=== PATIENT | male | born 1940 | race Caucasian/White ===

== ENCOUNTER 2021-03-16 08:56 | Observation (INO) | payer OTHER, MEDICARE, SELFPAY ==
[2021-03-16] VITALS (49 sets, daily range): BP systolic 143–191; BP diastolic 69–109; PULSE 39–90; RESP 14–95; TEMP 36.6–36.7; O2SAT 89–98; BMI 27.1
--- NOTE | 2021-03-16 09:32 | ECG_ITS ---
[facility] Test Date: 2021-03-16 Pat Name: Yung Smith Department: Room: Gender: Male Corporation Secretary: : 1940 Requested By: Álvaro Gao Order Number: [id number] Jasmin MD: Carlos Pitt M.D. Measurements Intervals [place] Rate: 38 P: [place]: QRS: 43 QRSD: 113 T: 50 QT: 482 QTc: 387 Interpretive Statements SUPRAVENTRICULAR BRADYCARDIA MODERATE INTRAVENTRICULAR CONDUCTION DELAY [110+ ms QRS DURATION] No previous ECG available for comparison Electronically Signed On 03-16-2021 23:26:58 CDT by Carlos Pitt M.D. [email or web address]/[id number] f
--- NOTE | 2021-03-16 09:32 | XR_ITS ---
WS: [id number] Exam: XR chest 1V portable [id number] Date/Time of Exam: 03/16/2021 9:32 AM Reason For Exam: dyspnea/cough No priors. The lungs are fully inflated and clear. Cardiomediastinal structures are unremarkable for portable te chnique. There may be a small hiatal hernia. No pleural effusions. Regional bony elements are intact. XR/XR chest 1V portable [id number] IMPRESSION: 1. No acute cardiopulmonary finding. 2. There may be a small hiatal hernia present
--- NOTE | 2021-03-16 09:33 | ED_ITS ---
HPI - General Adult General: Chief complaint: General Medical Stated complaint: LOW HR (42): [facility] Time Seen by Provider: 03/16/21 08:58 History of Present Illness: HPI narrative: 80-year-old male states last couple weeks he has had extremely poor exercise tolerance early fatigue. He usually walks couple miles a day he has an extremely difficult time doing at times not being able to accomplish it. He does not get chest pain but he notices his heart rate decreasing and he gets excessively short of breath and has to stop exerting himself. He does take metoprolol 100 mg twice daily. He thought to not take it last night and did not this morning he found his blood pressure to be elevated and he was tachycardic so he did take his metoprolol 100 mg he is now significantly bradycardic [facility] present to [facility] emergency room. He is not previously had arrhythmias to his knowledge. Onset (ago): hour(s) Relieving factors: none Exacerbating factors: none Associated symptoms: Reports dyspnea, malaise and palpitations; Deny chest pain, confusion, cough, diaphoresis, decreased appetite, fevers/chills, headache(s), nausea, rash, seizures, short of breath, syncope, vomiting or weakness Treatments prior to arrival: none Review of Systems Const: Reports: malaise; Denies: diaphoresis ENMT: Denies: throat pain, ear or mastoid pain, nasal discharge or nasal congestion Card: Reports: palpitations; Denies: chest pain or syncope Resp: Reports: dyspnea GI: Denies: nausea or vomiting : Denies: flank pain, dysuria, urinary frequency or urinary urgency Skin/Breast: Denies: rash Neuro: Denies: headache(s) or confusion PFS ED PFSH: Medical History Hypertension Surgical History History of cataract surgery History of foot surgery Family History Other CAD (coronary artery disease) Social History Smoking and tobacco status: former smoker Alcohol intake: former Physical Exam Const: COMMON NORMALS: no acute distress GENERAL APPEARANCE: cooperative and comfortable ORIENTATION/CONSCIOUSNESS: Yes awake, Yes oriented to person, Yes oriented to place and Yes oriented to time HENMT: COMMON NORMALS: normocephalic, atraumatic, hearing grossly normal bilaterally, external ears normal, EAC's normal, TM's normal bilaterally, Normal nasal mucous membranes and turbinates present, moist oral mucous membranes and oropharynx normal HEAD & SCALP: normocephalic and atraumatic NOSE: Normal nasal mucous membranes and turbinates present EXTERNAL EAR: Yes external ears normal EXTERNAL AUDITORY CANAL: EAC's normal TYMPANIC MEMBRANE: TM's normal bilaterally Eye: COMMON NORMALS: Equal, round and reactive pupils present, EOMs intact bilaterally, conjunctivae normal and no scleral icterus CONJUNCTIVA: Yes conjunctivae normal PUPIL: Yes Equal, round and reactive pupils present Neck/C-Spine: COMMON NORMALS: full ROM, no lymphadenopathy, supple and no JVD Lymph: LYMPHATIC: no lymphadenopathy noted and no lymphedema noted Resp: COMMON NORMALS: normal respiratory effort, No retractions, No use of accessory muscles and clear to auscultation bilaterally AUSCULTATION: clear to auscultation bilaterally Cardio: COMMON NORMALS: no JVD, regular rate, regular rhythm and No murmurs present (Cardio) RATE: regular rate RHYTHM: regular rhythm GI: COMMON NORMALS: Soft to palpation and No hepatosplenomegaly present AUSCULTATION: Yes normoactive bowel sounds PALPATION: Yes Soft to palpation, No Tenderness to palpation present (GI), No Guarding due to palpation present (GI) and Yes No hepatosplenomegaly present Extremity: COMMON NORMALS: normal to inspection, capillary refill normal, no clubbing, cyanosis or edema, no calf tenderness and no pedal edema Neuro: SENSORIUM/ORIENTATION: Yes oriented to person, Yes oriented to place and Yes oriented to time Skin: COMMON NORMALS: no rashes or lesions noted GENERAL SKIN EXAM: no rashes or lesions noted Course Vital Signs: Vital signs: Vital Signs Temperature 97.6 F 03/17/21 10:37 Pulse Rate 53 L 03/17/21 14:25 Respiratory Rate 20 H 03/17/21 14:25 Blood Pressure 123/61 03/17/21 14:25 Pulse Oximetry 95 03/17/21 14:25 MDM - General Adult MDM Narrative: Medical decision making narrative: Reviewed labs and imaging as found on the chart. Patient remains bradycardic but yet hypertensive. Discussed with Dr. Reynolds orders written. Lab Data: Labs: Lab Results 03/16/21 03/16/21 03/16/21 10:21 10:21 10:21 WBC 7.7 10^3/uL 10^3/ uL (4.0-10.0) RBC 4.72 10^6/uL 10^6 /uL (4.1-5.3) Hgb 14.5 g/dL g/dL (11.7-16.6) Hct 43.2 % % (42.0-52.0) MCV 91.5 fl fl (80-94) MCH 30.7 pg pg (28.0-34.0) MCHC 33.6 g/dL g/dL (30.0-36.0) RDW 13.2 % % (12.1-15.1) Plt Count 174 10^3/cmm 10^3 /cmm (130-400) MPV 12.5 fL H fL (7.4-10.4) Neut % (Auto) 65.8 % % Lymph % (Auto) 22.2 % % [place] % (Auto) 9.2 % % Eos % (Auto) 1.9 % % Baso % (Auto) 0.6 % % Neut # (Auto) 5.06 10^3/uL 10^3 /uL (1.8-7.7) Lymph # (Auto) 1.7 10^3/uL 10^3/ uL (0.8-4.8) [place] # (Auto) 0.7 10^3/uL 10^3/ uL (0.2-0.9) Eos # (Auto) 0.2 10^3/uL 10^3/ uL (0.0-0.8) Baso # (Auto) 0.1 10^3/uL 10^3/ uL (0.0-0.1) Nucleated RBC % (a uto) 0 % % Nucleated RBCs # 0.0 /100WBC /100W BC Sodium 137 mmol/L mmol/L (136-145) Potassium 4.5 mmol/L mmol/L (3.5-5.1) Chloride 104 mmol/L mmol/L (98-107) Carbon Dioxide 25 mmol/L mmol/L (22-29) Anion Gap 12.5 (5-19) BUN 15 mg/dL mg/dL (8-23) Creatinine 1.0 mg/dL mg/dL (0.7-1.2) GFR Calculation Not Reportable Glucose 93 mg/dL mg/dL (65-115) Calculated Osmolal ity 285 mOsm/kg mOsm/ kg (285-295) Calcium 8.9 mg/dL mg/dL (8.5-10.5) Magnesium Total Bilirubin 1.5 mg/dL H mg/dL (0.15-1.2) AST 16 U/L U/L (0-40) ALT 24 U/L U/L (0-41) Alkaline Phosphata se 67 IU/L IU/L (40-130) Troponin T Baselin e 10 ng/L ng/L (0-15) Troponin T 120 Min [place] Delta Troponin T NT-Pro-B Natriuret Pep 1383 pg/mL H pg/m L (0-450) Total Protein 7.2 g/dL g/dL (6.6-8.7) Albumin 4.3 g/dL g/dL (3.5-5.2) Globulin 2.9 g/dL g/dL (1.3-4.6) TSH 03/16/21 03/16/21 10:21 11:36 WBC RBC Hgb Hct MCV MCH MCHC RDW Plt Count MPV Neut % (Auto) Lymph % (Auto) [place] % (Auto) Eos % (Auto) Baso % (Auto) Neut # (Auto) Lymph # (Auto) [place] # (Auto) Eos # (Auto) Baso # (Auto) Nucleated RBC % (a uto) Nucleated RBCs # Sodium Potassium Chloride Carbon Dioxide Anion Gap BUN Creatinine GFR Calculation Glucose Calculated Osmolal ity Calcium Magnesium 1.9 mg/dL mg/dL (1.7-2.3) Total Bilirubin AST ALT Alkaline Phosphata se Troponin T Baselin e Troponin T 120 Min [place] 9.15 ng/L ng/L (0-15) Delta Troponin T -0.85 ABS# L ABS# (0-10) NT-Pro-B Natriuret Pep Total Protein Albumin Globulin TSH 3.45 uIU/mL uIU/m L (0.27-4.20) Discharge Plan Discharge Patient Disposition: Admitted As Inpatient Admit Provider: Александр Cotto Clinical Impression: Bradycardia, Hypertension Discharge Diet: Cardiac Discharge Activity: Increase activity as tolerated Coding Level of Care Code ED Rubber Extrusion Machine Operator for Chg Fwd Exam Comprehensive
--- NOTE | 2021-03-16 09:56 | PC.NURSE ---
Placed the patient on 2 liters nasal cannula per provider order. Pt O2 was 88.
[2021-03-16 10:29] LABS: Basophils # 0.1 10^3/uL (0.0-0.1); Basophils % 0.6 %; Eosinophils # 0.2 10^3/uL (0.0-0.8); Eosinophils % 1.9 %; Hematocrit 43.2 % (42.0-52.0); Hemoglobin 14.5 g/dL (11.7-16.6); Lymphocytes # 1.7 10^3/uL (0.8-4.8); Lymphocytes % 22.2 %; Mean Corpuscular HGB Conc 33.6 g/dL (30.0-36.0); Mean Corpuscular Hemoglobin 30.7 pg (28.0-34.0); Mean Corpuscular Volume 91.5 fl (80-94); Mean Platelet Volume 12.5 fL (7.4-10.4); Monocytes # 0.7 10^3/uL (0.2-0.9); Monocytes % 9.2 %; Neutrophils # 5.06 10^3/uL (1.8-7.7); Neutrophils % 65.8 %; Nucleated Red Blood Cells % 0 %; Platelet Count 174 10^3/cmm (130-400); Red Blood Count 4.72 10^6/uL (4.1-5.3); Red Cell Distribution Width 13.2 % (12.1-15.1); White Blood Count 7.7 10^3/uL (4.0-10.0)
--- NOTE | 2021-03-16 10:38 | PC.PHAR ---
pt states he takes care of his own medications-pt states he only takes the medications entered-pt [facility]
[2021-03-16 10:57] LABS: Troponin(5th) Baseline 10 ng/L (0-15)
[2021-03-16 11:01] LABS: Alanine Aminotransferase 24 U/L (0-41); Albumin Level 4.3 g/dL (3.5-5.2); Alkaline Phosphatase 67 IU/L (40-130); Anion Gap 12.5 (5-19); Aspartate Amino Transferase 16 U/L (0-40); Blood Urea Nitrogen 15 mg/dL (8-23); Calcium 8.9 mg/dL (8.5-10.5); Carbon Dioxide 25 mmol/L (22-29); Chloride 104 mmol/L (98-107); Globulin 2.9 g/dL (1.3-4.6); Glucose 93 mg/dL (65-115); NT Pro B Type Natriuretic Pept 1383 pg/mL (0-450); Osmolality Calculated 285 mOsm/kg (285-295); Potassium 4.5 mmol/L (3.5-5.1); Sodium 137 mmol/L (136-145); Total Bilirubin 1.5 mg/dL (0.15-1.2); Total Protein 7.2 g/dL (6.6-8.7)
--- NOTE | 2021-03-16 11:32 | ECG_ITS ---
[facility] Test Date: 2021-03-16 Pat Name: Yung Smith Department: Room: Gender: Male Locator Specialist: : 1940 Requested By: Álvaro Gao Order Number: [id number] Jasmin MD: Carlos Pitt M.D. Measurements Intervals [place] Rate: 45 P: [place]: QRS: 14 QRSD: 109 T: 38 QT: 499 QTc: 434 Interpretive Statements SUPRAVENTRICULAR BRADYCARDIA Compared to ECG 03/16/2021 09:12:53 Intraventricular conduction delay no longer present Electronically Signed On 03-16-2021 23:31:38 CDT by Carlos Pitt M.D. [email or web address]/store/OM/[id number]
[2021-03-16 12:15] LABS: Troponin 5 2HR 9.15 ng/L (0-15)
[2021-03-16 12:18] LABS: Troponin 5 2HR Delta -0.85 ABS# (0-10)
[2021-03-16] MEDS: amlodipine 5 mg Tablet PO (13:51)
--- NOTE | 2021-03-16 13:52 | PC.NURSE ---
Prior to administering amlodipine, pt BP was 196/115, heart rate 54, 95% room air 16 RR.
--- NOTE | 2021-03-16 14:11 | P.HP_ITS ---
Providers/Chief Complaint Primary Care Provider: Jaleesa Lezama MD Chief Complaint: LOW HR (42): [facility] History of Present Illness Yung Smith is a 80 year old male who presents to the emergency department with weakness over the last month. He has had shortness of breath when he tries to exert himself. No chest discomfort. Did not take his metoprolol last night as he noticed his heart rate was lower. Typically it runs in the mid 50s. He did take his metoprolol this morning. No recent illness, fever, cough. No nausea or vomiting. Denies any dizziness, or syncope. No blood in his stool or black or tarry stools. Review of Systems General: Reports: 10 or more systems reviewed and unremarkable except in HPI and below Const: Denies: fever(s) Eyes: Denies: change in vision ENMT: Denies: throat pain Card: Reports: dyspnea on exertion; Denies: chest pain Resp: Denies: productive cough or non-productive cough GI: Denies: abdominal pain, nausea or vomiting : Denies: flank pain Musc: Denies: neck pain Skin/Breast: Denies: rash Neuro: Denies: headache(s) Psych: Denies: anxiety Endo: Denies: polyuria [place]/Lymph: Denies: easy bruising All/Imm: Denies: urticaria Medications/Allergies Home Medications Medication Instructions Recorded Confirmed Last Taken Type cholecalciferol (vitamin D3) 50 mcg PO QAM 03/16/21 03/16/21 Unknown History [Vitamin D3] clonidine 0.3 mg TRANSDERMAL Q7D 03/16/21 03/16/21 03/09/21 History losartan 100 mg PO BEDTIME@03/16/21 03/16/21 Unknown History metoprolol tartrate 100 mg PO BID 03/16/21 03/16/21 03/16/21 06:30 History lloxl-0r-wvm-epa-fish oil [[place] 3] 1 cap PO QAM 03/16/21 03/16/21 Unknown H istory terazosin 2 mg PO BEDTIME@03/16/21 03/16/21 Unknown History Allergies Allergy/AdvReac Type Severity Reaction Status Date / Time No Known Allergies Allergy Verified 03/16/21 09:05 PFSH Acute PFSH: Medical History (Updated 03/16/21 @ 14:26 by Александр Cotto MD) Hypertension Surgical History (Updated 03/16/21 @ 14:13 by Александр Cotto MD) History of cataract surgery History of foot surgery Family History (Updated 03/16/21 @ 14:13 by Александр Cotto MD) Other CAD (coronary artery disease) Social History (Updated 03/16/21 @ 14:13 by Александр Cotto MD) Smoking and tobacco status: never smoked Alcohol intake: former Vitals/I&O/Wt Last Vital Signs Temp 97.8 F 03/16/21 13:28 Pulse 51 L 03/16/21 13:28 Resp 95 H 03/16/21 13:28 BP 177/96 03/16/21 13:28 Pulse Ox 95 03/16/21 13:28 Weight last 48 hrs Weight 90.718 kg Physical Exam Narrative: EXAM NARRATIVE: General exam is a white male, no distress, heart rate around 40 HEENT: Pupils equally round. Oropharynx clear. Neck is supple no lymphadenopathy or megaly Cardiovascular bradycardic, regular, no murmur Lungs clear no wheezing or crackles Abdomen is soft with positive bowel sounds. No obvious organomegaly exam is deferred Extremities no cyanosis clubbing or edema, cap refill brisk Skin no rash Neuro no focal deficits. Data : 03/16/21 10:21 03/16/21 10:21 Other data: Calcium 8.9, total bilirubin 1.5 rest of LFTs normal. BNP 1383, albumin 4.3 Troponins normal Chest x-ray no infiltrate EKG demonstrates supraventricular bradycardia, intraventricular conduction delay, heart rate of 38, normal axis A&P Assessment and plan (1) Bradycardia: Significant bradycardia Hold metoprolol, clonidine Norvasc will be initiated along with hydralazine. Continue patient's losartan and terazosin Cardiology consultation. Potentially could need pacemaker. If does not consider event monitor on discharge. Initially place in ICU, unless heart rate comes up and then could defer to CSU Check echocardiogram Check magnesium, TSH Hydration. No evidence of heart failure currently. Status: Acute (2) Hypertension: See plans as outlined above Status: Acute Additional A&P Information Full code Lovenox for DVT prophylaxis Attestations Medical Necessity Statement*: Will need less than 2 midnight stay for evaluation of bradycardia. Time Spent in Patient Care: Greater than 35 minutes Coding Level of Care Code Acute Barrel Filler Head for Chg Fwd Diagnoses Bradycardia R00.1 Hypertension I10
--- NOTE | 2021-03-16 14:19 | USCV_ITS ---
Yung Smith Age: 80 Gender: M : 1940 Exam Date: 03/16/2021 14:36 Ordering Phys: Александр Cotto MD Technologist: ANTONIA Exam Location: [facility] Indication: BRADYCARDIA BP: 197 / 115 HR: 43 Rhythm: Atrial fibrillation Technical Quality: Adequate MEASUREMENTS (Male / Female) Normal Values 2D ECHO LV Diastolic Diameter PLAX 4.8 cm 4.2 - 5.9 / 3.9 - 5.3 cm LV Systolic Diameter PLAX 4.1 cm IVS Diastolic Thickness 1.4 cm 0.6 - 1.0 / 0.6 - 0.9 cm IVS Systolic Thickness 1.9 cm LVPW Diastolic Thickness 1.6 cm 0.6 - 1.0 / 0.6 - 0.9 cm LVPW Systolic Thickness 2.0 cm LVOT Diameter 2.0 cm LV Ejection Fraction 2D Teich 31.7 % LV Ejection Fraction MOD 2C 55.8 % LV Ejection Fraction 2C AL 54.4 % LA Diameter 3.8 cm LA Width 3.5 cm LA Height 6.4 cm RA Width 4.6 cm RA Height 4.9 cm Aorta at Sinotubular Diameter 2.5 cm M-MODE Aortic Annulus Diameter 3.0 cm MV E Point Septal Separation 1.7 cm DOPPLER AV Peak Velocity 170.0 cm/s LVOT Peak Velocity 94.0 cm/s AV Area Cont Eq vti 2.1 cm squared AV Area Cont Eq pk 1.8 cm squared MV Peak Velocity 127.0 cm/s MV Area PHT 3.3 cm squared MV E' Velocity 61.0 cm/s Mitral E to MV E' Ratio 12.5 Mitral E to LV E' Lateral Ratio 10.3 Mitral E to LV E' Septal Ratio 16.1 TR Peak Velocity 257.0 cm/s TR Peak Gradient 26.4 mmHg TR Mean Velocity 208.7 cm/s TR Mean Gradient 18.7 mmHg TR Velocity Time Integral 80.2 cm TV Peak E Velocity 48.0 cm/s Right Atrial Pressure 3.0 mmHg Pulmonary Artery Systolic Pressu 29.4 mmHg FINDINGS Left Ventricle Normal left ventricular size and systolic function, EF 55 %. Mild left ventricular hypertrophy. No regional wall motion abnormalities. Right Ventricle The right ventricle is normal in size and function. Right Atrium mildly increased right atrial size. Left Atrium Mildly increased left atrial size. Mitral Valve Mild mitral valve regurgitation. Aortic Valve Thickened aortic valve. [id number] aortic valve regurgitation. Tricuspid Valve Mild tricuspid valve regurgitation. Pulmonic Valve Pulmonic valve not well visualized. Pericardium Normal pericardium without effusion. Aorta Normal aortic annulus size. CONCLUSIONS Normal left ventricular size and systolic function, EF 55 %. Mild left ventricular hypertrophy. No regional wall motion abnormalities. Mild biatrial enlargement Mild mitral and tricuspid valve regurgitation. [id number] aortic valve regurgitation. Thickened aortic valve. Estimated pulmonary artery peak systolic pressure 20 mmHg There is no pericardial effusion. There are no intracardiac masses. No previous study is available for comparison. Dr Rodney Phillips MD FACC (Electronically Signed) Final Date: 16 March 2021 21:54 S
[2021-03-16] MEDS: hyDRALAzine 50 mg Tablet PO ×2 (14:42→20:39)
[2021-03-16 15:02] LABS: Magnesium 1.9 mg/dL (1.7-2.3); Thyroid Stimulating Hormone 3.45 uIU/mL (0.27-4.20)
--- NOTE | 2021-03-16 15:32 | ECG_ITS ---
[facility] Test Date: 2021-03-16 Pat Name: Yung Smith Department: Room: Gender: Male Janitor: : 1940 Requested By: Álvaro Gao Order Number: [id number] Jasmin MD: Carlos Pitt M.D. Measurements Intervals [place] Rate: 54 P: [place]: QRS: 16 QRSD: 108 T: 31 QT: 481 QTc: 456 Interpretive Statements ATRIAL FIBRILLATION WITH SLOW VENTRICULAR RESPONSE PROLONGED QT INTERVAL Compared to ECG 03/16/2021 11:48:05 Prolonged QT interval now present Sinus bradycardia no longer present Electronically Signed On 03-16-2021 23:30:05 CDT by Carlos Pitt M.D. [id number]
--- NOTE | 2021-03-16 18:27 | P.CONIM_ITS ---
Providers/Reason For Consult Consulting Physician/Specialty*: DERREK Phillips MD/cardiology Reason for Consult*: Bradycardia/ HTN/ Attending Physician: Александр Cotto MD Primary Care Provider: Jaleesa Lezama MD History of Present Illness History of Present Illness Yung Smith is a 80 year old male presented to the emergency room today with complaints of palpitation, slow heartbeat and some feeling of weakness. This patient has a longstanding history of hypertension. He been on multiple antihypertensive medications including metoprolol 100 mg p.o. twice daily and clonidine 0.3mg transdermal patch once a week. For the last few weeks, he been noticing the heart rate running in the 40s and 50s. This morning the heart rate was in the low 40s. He thought that his heart rate might be progressively slowing down. For this reason, he decided to come to the hospital. He did not have any syncopal or near syncopal episodes. Occasionally he may get some queasy feeling in the head. No chest pain. He has no unusual shortness of breath. He has been having palpitations off and on for the last several months. The palpitations usually happens in the night. He has no documents to for cardiac arrhythmia or atrial fibrillation. No history for CVA or peripheral arterial disease. He has been compliant with medications. Denies any smoking abuse, alcohol abuse or any other substance abuse. No significant family history for atherosclerotic heart disease or cardiac arr hythmia. None of his close relatives have a pacemaker. Review of Systems Narrative: CONSTITUTIONAL: No fever or chills. Feeling of lethargy/weakness for the last month or so. EYES: No blurring of vision or other visual disturbances lately. ENT: No hoarseness of voice, auditory disturbances or sore throat. CARDIOVASCULAR: As mentioned above. RESPIRATORY: No significant cough. GASTROINTESTINAL: No hematemesis or melena. GENITOURINARY: No dysuria or hematuria. INTEGUMENTARY: No skin rashes or history of skin cancer. NEURO: No transient ischemic attacks or amaurosis. PSYCHIATRIC: No history of psychosis or major depression. HEMATOLOGIC: No bleeding disorders or significant anemia. ENDOCRINE: No history of polyuria or polydipsia. MUSCULOSKELETAL: No recent joint pain or swelling. ALLERGY/IMMUNOLOGY: As mentioned above. Meds/Allergies Home Medications and Allergies Home Medications Medication Instructions Recorded Confirmed Last Taken Type Vitamin D3 50 mcg PO QAM 03/16/21 03/16/21 Unknown History losartan 100 mg PO BEDTIME@21 03/16/21 03/16/21 Unknown History [id number]-fish oil 1 cap PO QAM 03/16/21 03/16/21 Unknown History terazosin 2 mg PO BEDTIME@21 03/16/21 03/16/21 Unknown History amlodipine 10 mg PO DAILY #30 tab 03/17/21 Unknown Rx apixaban [Eliquis] 5 mg PO BID@0900,2100 #60 tab 03/17/21 Unknown Rx hydralazine 50 mg PO TID #90 tab 03/17/21 Unknown Rx metoprolol tartrate 50 mg PO BID@0900,2100 #60 tab 03/17/21 Unknown Rx Allergies Allergy/AdvReac Type Severity Reaction Status Date / Time No Known Allergies Allergy Verified 03/16/21 09:05 Current Medications Current Medications Generic Name Dose Route Start Last Admin Trade Name Freq PRN Reason Stop Dose Admin Hydralazine HCl 50 mg 03/16/21 15:00 03/16/21 14:42 Hydralazine 50 Mg Tablet PO 50 mg TID NKECHI Administration PFSH Acute PFSH: Medical History Hypertension Surgical History History of cataract surgery History of foot surgery Family History Other CAD (coronary artery disease) Social History Smoking and tobacco status: never smoked Alcohol intake: former Vitals/I&O/Wt Last Vital Signs Temp 98.1 F 03/16/21 14:19 Pulse 60 03/16/21 17:59 Resp 17 03/16/21 17:59 BP 187/103 03/16/21 17:59 Pulse Ox 97 03/16/21 17:59 Weight last 48 hrs Weight 200 lb Physical Exam Narrative: EXAM NARRATIVE: GENERAL: The patient is alert and oriented times three. Not in any acute distress. HEENT: No significant pallor, icterus or lymphadenopathy. The pupils are reactant to light. Oral cavity: There are no mucous membrane lesions. Funduscopic examination: The fundus is not visualized NECK: Trachea appears to be central. No masses noted. No JVD or thyromegaly appreciated. No carotid bruit. RESPIRATORY: Chest is symmetrical. No intercostals muscle retraction or any accessory muscle activation. There is no chest wall tenderness. Breath sounds are heard bilaterally. No rales or rhonchi heard. No evidence of any consolidation. BREASTS: Deferred. HEART: The PMI is in the 5th left intercostals space just inside the midclavicular line. No palpable precordial events. The first heart sound is variable. Second heart sound is normal. No S3 or S4 heard. No pericardial rub or any click heard. ABDOMEN: No vessel pulsations or distention. No tenderness. No organomegaly appreciated. No abdominal bruit. Bowel sounds are normally heard. : Deferred. RECTAL: Deferred. LYMPHATIC: No lymphadenopathy noted in the neck or groin. EXTREMITIES: No edema or cyanosis. No clubbing. The pulses are symmetrical bilaterally. The radial, femoral, dorsalis pedis and the posterior tibial pulses are palpated and found to be in good volume and amplitude. MUSCULOSKELETAL: No acute joint deformities or swelling SKIN: There are no significant scars or skin rash noted. NEUROPSYCHIATRIC: The patient is alert and oriented x3. Appears to be in a good mood. The higher functions are grossly within normal limits. No tremors or rigidity noted. Data Labs: Other Labs: Laboratory Last Values WBC 7.7 10^3/uL (4.0- 10.0) 03/16/21 10:21 RBC 4.72 10^6/uL (4.1 -5.3) 03/16/21 10:21 Hgb 14.5 g/dL (11.7-1 6.6) 03/16/21 10:21 Hct 43.2 % (42.0-52.0 ) 03/16/21 10:21 MCV 91.5 fl (80-94) 03/16/21 10:21 MCH 30.7 pg (28.0-34. 0) 03/16/21 10:21 MCHC 33.6 g/dL (30.0-3 6.0) 03/16/21 10:21 RDW 13.2 % (12.1-15.1 ) 03/16/21 10:21 Plt Count 174 10^3/cmm (130 -400) 03/16/21 10:21 MPV 12.5 fL (7.4-10.4 ) H 03/16/21 10:21 Neut % (Auto) 65.8 % 03/16/21 10:21 Lymph % (Auto) 22.2 % 03/16/21 10:21 Hughes % (Auto) 9.2 % 03/16/21 10:21 Eos % (Auto) 1.9 % 03/16/21 10:21 Baso % (Auto) 0.6 % 03/16/21 10:21 Neut # (Auto) 5.06 10^3/uL (1.8 -7.7) 03/16/21 10:21 Lymph # (Auto) 1.7 10^3/uL (0.8- 4.8) 03/16/21 10:21 Hughes # (Auto) 0.7 10^3/uL (0.2- 0.9) 03/16/21 10:21 Eos # (Auto) 0.2 10^3/uL (0.0- 0.8) 03/16/21 10:21 Baso # (Auto) 0.1 10^3/uL (0.0- 0.1) 03/16/21 10:21 Nucleated RBC % (a uto) 0 % 03/16/21 10:21 Nucleated RBCs # 0.0 /100WBC 03/16/21 10:21 Sodium 137 mmol/L (136-1 45) 03/16/21 10:21 Potassium 4.5 mmol/L (3.5-5 .1) 03/16/21 10:21 Chloride 104 mmol/L (98-10 7) 03/16/21 10:21 Carbon Dioxide 25 mmol/L (22-29) 03/16/21 10:21 Anion Gap 12.5 (5-19) 03/16/21 10:21 BUN 15 mg/dL (8-23) 03/16/21 10:21 Creatinine 1.0 mg/dL (0.7-1. 2) 03/16/21 10:21 GFR Calculation Not Reportable 03/16/21 10:21 Glucose 93 mg/dL (65-115) 03/16/21 10:21 Calculated Osmolal ity 285 mOsm/kg (285- 295) 03/16/21 10:21 Calcium 8.9 mg/dL (8.5-10 .5) 03/16/21 10:21 Magnesium 1.9 mg/dL (1.7-2. 3) 03/16/21 10:21 Total Bilirubin 1.5 mg/dL (0.15-1 .2) H 03/16/21 10:21 AST 16 U/L (0-40) 03/16/21 10:21 ALT 24 U/L (0-41) 03/16/21 10:21 Alkaline Phosphata se 67 IU/L (40-130) 03/16/21 10:21 Troponin T Baselin e 10 ng/L (0-15) 03/16/21 10:21 Troponin T 120 Min lummi 9.15 ng/L (0-15) 03/16/21 11:36 Delta Troponin T -0.85 ABS# (0-10) L 03/16/21 11:36 NT-Pro-B Natriuret Pep 1383 pg/mL (0-450 ) H 03/16/21 10:21 Total Protein 7.2 g/dL (6.6-8.7 ) 03/16/21 10:21 Albumin 4.3 g/dL (3.5-5.2 ) 03/16/21 10:21 Globulin 2.9 g/dL (1.3-4.6 ) 03/16/21 10:21 TSH 3.45 uIU/mL (0.27 -4.20) 03/16/21 10:21 The EKG revealed atrial fibrillation with a slow ventricular response rate. Some nonspecific changes. QTC of 456. Chest x-ray revealed normal cardiac silhouette with no lung infiltrates. No acute pathology noted. A&P Assessment and plan (1) Accelerated hypertension: The accident hypertension, could be because of the withdrawal of metoprolol and clonidine. I may start the patient on metoprolol 50 mg p.o. twice daily. We may go up on the other antihypertensive medications. The blood pressure needs to be closely monitored. Status: Acute (2) Bradycardia: Most likely the patient has some sinus chris dysfunction. The heart rate seems to be improving at this point. This needs to be closely monitored. She may require a permanent pacer implantation sometime down the line. Status: Acute (3) Atrial fibrillation: Admit appropriate to start the patient on therapeutic dose of Lovenox at this point. An echocardiogram was done which will be reviewed. Also may schedule the patient for a Lexiscan/sestamibi/sestamibi stress test to evaluate for any underlying coronary ischemia. Status: Acute Qualifiers: Atrial fibrillation type: unspecified Qualified Code(s): I48.91 - Unspecified atrial fibrillation Additional A&P Information After reviewing the above and also based on the patient's clinical progress, further recommendations will be made. Thank you for the opportunity to evaluate this patient and make these recommendation Consult Attestations Medical Necessity Statement: Patient may require at least 2 midnight stay, for further evaluation and management of his condition. Coding Level of Care Code Acute Flight Kitchen Manager for Ricky Fwd History Detailed Exam Detailed Medical Decision Making High Complexity Diagnoses Accelerated hypertension I10 Bradycardia R00.1 Atrial fibrillation I48.91 Atrial fibrillation type: unspecified
--- NOTE | 2021-03-16 18:45 | ECG_ITS ---
[facility] Test Date: 2021-03-17 Pat Name: Yung Smith Department: Room: ICU06 Gender: Male Manager Cafe: : 1940 Requested By: Rodney Phillips Order Number: [id number] Jasmin MD: Rodney Phillips M.D. Interpretive Statements NAME OF STUDY: LEXISCAN SESTAMIBI STRESS TEST INDICATION: afib, PROCEDURE: At the baseline, the EKG revealed atrial fibrillation with a controlled ventricular response rate. Poor R wave progression. Some nonspecific T wave changes. The baseline blood pressure was 213/107 mm Hg with a heart rate of 71 beats/min. Lexiscan was infused over a period of 20 seconds. A total of 0.4 milligrams of Lexiscan was infused. The stress phase was continued for a total of 5 minutes. Heart rate at the end of the stress phase was 78 with a blood pressure 190/91. The EKG at the peak infusion revealed no significant changes. Sestamibi was injected 20 seconds after the Lexiscan infusion. Blood pressure at the end of the recovery phase was 175/91 with a heart rate of 66 per minute. CONCLUSION: 1. No significant EKG changes with the LexiScan infusion 2. No LexiScan induced chest pain or cardiac arrhythmia 3. Normal blood pressure and heart rate response 4. Sestamibi/sestamibi perfusion scan pending; see separate report. Electronically Signed On 03-20-2021 13:37:05 CDT by Rodney Phillips M.D. [id number]
[2021-03-16] MEDS: sodium chloride 0.9% 1,000 ML 75 ML IV (20:03)
[2021-03-16] MEDS: enoxaparin 40 mg/0.4 mL Syringe SUBCUT (20:04)
[2021-03-16] MEDS: losartan 50 mg Tablet 100 MG PO (20:39)
[2021-03-17] VITALS (132 sets, daily range): BP systolic 105–185; BP diastolic 56–105; PULSE 47–94; RESP 14–29; TEMP 36.4; O2SAT 86–97
--- NOTE | 2021-03-17 03:19 | PC.NURSE ---
Patient resting quietly in room. Very pleasant and cooperative with staff. Dr. Phillips called to confirm stress test ordered for morning. Patient is NPO after midnight.
[2021-03-17 05:34] LABS: Basophils % 0.4 %; Eosinophils # 0.1 10^3/uL (0.0-0.8); Hematocrit 42.3 % (42.0-52.0); Hemoglobin 14.6 g/dL (11.7-16.6); Lymphocytes % 29.3 %; Mean Corpuscular HGB Conc 34.5 g/dL (30.0-36.0); Mean Corpuscular Hemoglobin 31.1 pg (28.0-34.0); Mean Corpuscular Volume 90.2 fl (80-94); Mean Platelet Volume 12.4 fL (7.4-10.4); Monocytes # 0.8 10^3/uL (0.2-0.9); Monocytes % 10.9 %; Neutrophils # 3.99 10^3/uL (1.8-7.7); Neutrophils % 57.3 %; Nucleated Red Blood Cells % 0 %; Platelet Count 174 10^3/cmm (130-400); Red Blood Count 4.69 10^6/uL (4.1-5.3); Red Cell Distribution Width 13.2 % (12.1-15.1)
[2021-03-17 06:10] LABS: Alanine Aminotransferase 18 U/L (0-41); Albumin Level 3.8 g/dL (3.5-5.2); Alkaline Phosphatase 57 IU/L (40-130); Anion Gap 16.6 (5-19); Aspartate Amino Transferase 13 U/L (0-40); Blood Urea Nitrogen 14 mg/dL (8-23); Calcium 9.1 mg/dL (8.5-10.5); Carbon Dioxide 22 mmol/L (22-29); Chloride 106 mmol/L (98-107); Globulin 3.4 g/dL (1.3-4.6); Glucose 84 mg/dL (65-115); Osmolality Calculated 292 mOsm/kg (285-295); Potassium 3.6 mmol/L (3.5-5.1); Sodium 141 mmol/L (136-145); Total Bilirubin 1.8 mg/dL (0.15-1.2); Total Protein 7.2 g/dL (6.6-8.7)
[2021-03-17] MEDS: regadenoson 0.4 Mg/5 ml Syringe IVP (08:24)
--- NOTE | 2021-03-17 10:04 | PC.CHAP ---
Pastoral Care Encounter/Spiritual Assessment Type of Contact [] Declined acute dialysis nurse visit [] Patient/Family/Request visit [] Outpatient visit [] Follow-up visit [] Physician referral [] Code/Alert [x] Routine visit [] Staff referral [] Actively dying [] Patient sleeping [] Family support [] [x] Out of room [] Palliative care [] [] Receiving care in room [] Pre-surgical visit [] Trauma [] Long length of stay [x] ICU visit [x] Other: stress test Relational/Emotional Strength [] Patient feels connected with others/family/visitors/staff [] Distress [] Loneliness/isolation [] Abandonment Spirituality of Patient [] Person of Kelsie [] Attends Orthodoxy of their Kelsie [] Believes in Prayer [] Reads Bible or Gnosticism materials [] There are Spiritual issues to be addressed Clinical Advisor Interventions [x] Prayer [] Active listening [] Non-anxious presence [] Spiritual/emotional support [] Crisis/trauma care [] Spiritual counseling [] Bereavement support [] Provided bereavement packet [] Provided Bible/devotional materials [] Provided toy/stuffed animal, coloring book to patient or family member [] Provided Communion [] Anointing/[place] [] Salvation [x] Completed spiritual assessment [] Other: Impact on Illness or Injury [] Angry [] Fearful [] Anxious [] Often cries [] Exhaustion [] Unable to work [] Unable to attend jewish [] Unable to walk/stand [] Unable to read [] Unable to drive [] Unable to eat/drink [] Unable to sleep [] Unable to be with family [] Patient intubated [] Other: Summary Time spent with patient
[2021-03-17] MEDS: hyDRALAzine 50 mg Tablet PO ×2 (10:28→14:46)
[2021-03-17] MEDS: amlodipine 10 mg Tablet PO (10:28)
[2021-03-17] MEDS: metoprolol tartrate 50 mg Tablet PO (11:09)
--- NOTE | 2021-03-17 11:55 | P.PN_ITS ---
Subjective Subjective: Interval history: Yung reports he is doing okay. No specific concerns at this point. No chest discomfort. Does not feel short of breath. Medications: Reviewed: Yes Vitals/I&O/Wt Last Vital Signs Temp 97.6 F 03/17/21 10:37 Pulse 74 03/17/21 10:37 Resp 20 H 03/17/21 10:37 BP 166/89 03/17/21 10:37 Pulse Ox 93 03/17/21 10:37 03/16/21 03/17/21 03/17/21 22:59 06:59 14:59 Intake Total 120 / 120 0 / 120 882.5 / 882.5 Output Total 400 / 400 900 / 1300 Balance -280 / -280 -900 / -1180 882.5 / 882.5 Weight last 48 hrs Weight 90.718 kg Physical Exam Narrative: EXAM NARRATIVE: General exam is a white male, no distress Neck is supple no lymphadenopathy or megaly Cardiovascular irregular, irregular without murmur Lungs clear no wheezing or crackles Abdomen is soft with positive bowel sounds. No obvious organomegaly Extremities no cyanosis clubbing or edema, cap refill brisk Data : 03/17/21 04:46 03/17/21 04:46 A&P Assessment and plan (1) Bradycardia: Significant bradycardia Improved with holding metoprolol. This was restarted at 50 mg twice a day per cardiology. Clonidine discontinued Norvasc, losartan, terazosin continued and hydralazine added Appreciate cardiology evaluation. Awaiting nuclear stress test today to determine any further evaluation Echocardiogram demonstrated preserved EF, mild mitral and tricuspid regurgitation and mild to moderate aortic regurgitation, LVH Magnesium and TSH were normal Status: Acute (2) Hypertension: See plans as outlined above Status: Acute Additional A&P Information Full code Lovenox for DVT prophylaxis Attestations Medical Necessity Statement*: Needs continued hospitalization for adjustment of medications secondary to severe bradycardia, as well as evaluation with nuclear stress testing. Coding Level of Care Code Acute Art Therapist for Ricky Piper Diagnoses Bradycardia R00.1 Hypertension I10
--- NOTE | 2021-03-17 13:59 | P.DS_ITS ---
Discharge Providers Date of Admission: 03/16/21 14:24 Date of Discharge: March 17, 2021 Attending Provider at Admission: Александр Cotto MD Attending Provider at Discharge: Александр Cotto MD Primary Care Provider: Jaleesa Lezama MD Diagnoses at Discharge Discharge Diagnosis (1) Bradycardia: Status: Acute (2) Hypertension: Status: Acute Reason for Visit Reason for Visit: LOW HR (42): SENT BY [facility] Hospital Course Hospital Course Yung is a 80-year-old white male who presented to the emergency department with bradycardia, tiredness. Symptoms have been going on for about a month. He was found to be significantly bradycardic, and atrial fibrillation with slow ventricular rate. Troponins were negative. He was anticoagulated. An echocardiogram was performed which demonstrated preserved EF, mild to moderate aortic regurgitation. Cardiology was consulted, and clonidine was discontinued. Metoprolol dosing was adjusted down. Other medications added for accelerated hypertension. He tolerated all these changes without difficulty, felt better with less shortness of breath, and underwent a nuclear stress test on March 17. This was negative for any reversible ischemia. It was thought he could discharge home with close follow-up with cardiology next week. Heart rate was mid 50s at discharge, atrial fibrillation. Physical Exam Narrative: EXAM NARRATIVE: General exam no apparent distress Neck is supple no lymphadenopathy thyromegaly Cardiovascular irregular, irregular Lungs clear Abdomen is soft with positive bowel sounds Extremities no cyanosis clubbing or edema Discharge Data Data Completed and Pending: Completed Studies During Hospitalization Category Date Time Status Sestamibi Stress Test Request Routi ne Exams 03/16/21 18:45 Draft XR chest 1V damon ble [id number] Stat Exams 03/16/21 09:32 Completed NM jermain perf SPECT r/s* [id number] Routin e Nuc Med 03/17/21 18:47 Completed CV. echo complete * [id number] Routine Ultrasound 03/16/21 14:19 Completed Labs from last 24 hours 03/17/21 03/17/21 03/16/21 04:46 04:46 10:21 WBC 7.0 RBC 4.69 Hgb 14.6 Hct 42.3 MCV 90.2 MCH 31.1 MCHC 34.5 RDW 13.2 Plt Count 174 MPV 12.4 H Neut % (Auto) 57.3 Lymph % (Auto) 29.3 [place]zel % (Auto) 10.9 Eos % (Auto) 2.0 Baso % (Auto) 0.4 Neut # (Auto) 3.99 Lymph # (Auto) 2.0 Wetzel # (Auto) 0.8 Eos # (Auto) 0.1 Baso # (Auto) 0.0 Nucleated RBC % (a uto) 0 Nucleated RBCs # 0.0 Sodium 141 Potassium 3.6 Chloride 106 Carbon Dioxide 22 Anion Gap 16.6 BUN 14 Creatinine 0.9 GFR Calculation Not Reportable Glucose 84 Calculated Osmolal ity 292 Calcium 9.1 Magnesium 1.9 Total Bilirubin 1.8 H AST 13 ALT 18 Alkaline Phosphata se 57 Total Protein 7.2 Albumin 3.8 Globulin 3.4 TSH 3.45 Vitals: Last Vital Signs Temp 97.6 F 03/17/21 10:37 Pulse 56 L 03/17/21 13:55 Resp 22 H 03/17/21 13:55 BP 105/59 03/17/21 13:55 Pulse Ox 93 03/17/21 13:55 Discharge Plan Discharge Prescriptions: New hydralazine 50 mg Tablet 50 mg PO TID Qty: 90 RF: 0 Eliquis 5 mg Tablet 5 mg PO BID@0900,2100 Qty: 60 RF: 0 amlodipine 10 mg Tablet 10 mg PO DAILY Qty: 30 RF: 0 metoprolol tartrate 50 mg Tablet 50 mg PO BID@0900,2100 Qty: 60 RF: 0 Continued terazosin 2 mg Capsule 2 mg PO BEDTIME@21 RF: 0 losartan 100 mg Tablet 100 mg PO BEDTIME@21 RF: 0 Vitamin D3 50 mcg (2,000 unit) Capsule 50 mcg PO QAM RF: 0 [place] 3 350-400 mg Capsule 1 cap PO QAM RF: 0 Discontinued metoprolol tartrate 100 mg tablet 100 mg PO BID RF: 0 clonidine 0.3 mg/24 hr Patch Weekly 0.3 mg transdermal Q7D RF: 0 Discharge Orders: Discharge Order (Routine); Ordered 03/17/21 Ordered By: Александр Cotto Referrals: Jaleesa Lezama MD [Primary Care Provider] - 4-7 days Rodney Phillips MD [Physician] - 1 week (May follow-up with nurse practitioner) Discharge Diet: Cardiac Discharge Activity: Increase activity as tolerated Patient Instructions: Opioid Safety Activity Restrictions/Additional Instructions: Take all medicine as prescribed Follow-up in cardiology clinic next week Follow-up with primary care provider 3 to 5 days. Discharge Attestations Time Spent in Discharge Care*: greater than 30 min Quality Metrics Clinical Quality Measures During this hospital stay, did patient experience: None Coding Level of Care Code Acute g FW MS note Diagnoses Bradycardia R00.1 Hypertension I10
[2021-03-17] MEDS: apixaban 5 mg Tablet PO (14:45)
--- NOTE | 2021-03-17 15:09 | PM.PN ---
Subjective Subjective: Interval history: Patient is feeling okay with no chest pain or chest tightness. No shortness of breath. No new symptoms. The vital signs are stable Medications: Reviewed: Yes Medication Review Details: Current Medications Aminophylline (Aminophylline 25 Mg/Ml Sdv 10 Ml) 25 mg IVP Q2M PRN PRN Reason: see dose instructions Stop: 03/18/21 06:40 Amlodipine Besylate (Amlodipine 10 Mg Tablet) 10 mg PO DAILY [facility] Last Admin: 03/17/21 10:28 Dose: 10 mg Documented by: Apixaban (Apixaban 5 Mg Tablet) 5 mg PO BID@0900,2100 [facility] Last Admin: 03/17/21 14:45 Dose: 5 mg Documented by: Hydralazine HCl (Hydralazine 50 Mg Tablet) 50 mg PO TID [facility] Last Admin: 03/17/21 14:46 Dose: 50 mg Documented by: Losartan Potassium (Losartan 50 Mg Tablet) 100 mg PO BEDTIME@21 [facility] Last Admin: 03/16/21 20:39 Dose: 100 mg Documented by: Metoprolol Tartrate (Metoprolol Tartrate 50 Mg Tablet) 50 mg PO BID@0900,2100 [facility] Last Admin: 03/17/21 11:09 Dose: 50 mg Documented by: Nitroglycerin (Nitroglycerin 0.4 Mg Sublingual Tablet) 0.4 mg SUBLINGUAL Q5M PRN PRN Reason: CHEST PAIN Stop: 03/18/21 06:40 Ondansetron HCl (Ondansetron 2 Mg/Ml Sdv 2 Ml) 4 mg IVP Q6H PRN PRN Reason: NAUSEA AND VOMITING Ondansetron HCl (Ondansetron 2 Mg/Ml Sdv 2 Ml) 4 mg IVP Q2M PRN PRN Reason: NAUSEA Terazosin HCl (Terazosin 1 Mg Capsule) 2 mg PO BEDTIME@21 [facility] Last Admin: 03/16/21 21:02 Dose: 2 mg Documented by: Vitals/I&O/Wt Last Vital Signs Temp 97.6 F 03/17/21 10:37 Pulse 53 L 03/17/21 14:25 Resp 20 H 03/17/21 14:25 BP 123/61 03/17/21 14:25 Pulse Ox 95 03/17/21 14:25 03/17/21 03/17/21 03/17/21 06:59 14:59 22:59 Intake Total 0 / 120 1122.5 / 1122.5 Output Total 900 / 1300 Balance -900 / -1180 1122.5 / 1122.5 Weight last 48 hrs Weight 200 lb Physical Exam Narrative: EXAM NARRATIVE: GENERAL: The patient is alert and oriented times three. Not in any acute distress. HEENT: No significant pallor, icterus or lymphadenopathy. The pupils are reactant to light. Oral cavity: There are no mucous membrane lesions. Funduscopic examination: The fundus is not visualized NECK: Trachea appears to be central. No masses noted. No JVD or thyromegaly appreciated. No carotid bruit. RESPIRATORY: Chest is symmetrical. No intercostals muscle retraction or any accessory muscle activation. There is no chest wall tenderness. Breath sounds are heard bilaterally. No rales or rhonchi heard. No evidence of any consolidation. BREASTS: Deferred. HEART: The PMI is in the 5th left intercostals space just inside the midclavicular line. No palpable precordial events. The first heart sound is variable. Second heart sound is normal. No S3 or S4 heard. No pericardial rub or any click heard. ABDOMEN: No vessel pulsations or distention. No tenderness. No organomegaly appreciated. No abdominal bruit. Bowel sounds are normally heard. : Deferred. RECTAL: Deferred. LYMPHATIC: No lymphadenopathy noted in the neck or groin. EXTREMITIES: No edema or cyanosis. No clubbing. T MUSCULOSKELETAL: No acute joint deformities or swelling SKIN: There are no significant scars or skin rash noted. NEUROPSYCHIATRIC: The patient is alert and oriented x3. Appears to be in a good mood. The higher functions are grossly within normal limits. No tremors or rigidity noted. Data : 03/17/21 04:46 03/17/21 04:46 Other Labs: Laboratory Last Values WBC 7.0 10^3/uL (4.0-10.0) 03/17/21 04:46 RBC 4.69 10^6/uL (4.1-5.3) 03/17/21 04:46 Hgb 14.6 g/dL (11.7-16.6) 03/17/21 04:46 Hct 42.3 % (42.0-52.0) 03/17/21 04:46 MCV 90.2 fl (80-94) 03/17/21 04:46 MCH 31.1 pg (28.0-34.0) 03/17/21 04:46 MCHC 34.5 g/dL (30.0-36.0) 03/17/21 04:46 RDW 13.2 % (12.1-15.1) 03/17/21 04:46 Plt Count 174 10^3/cmm (130-400) 03/17/21 04:46 MPV 12.4 fL (7.4-10.4) H 03/17/21 04:46 Neut % (Auto) 57.3 % 03/17/21 04:46 Lymph % (Auto) 29.3 % 03/17/21 04:46 Reagan % (Auto) 10.9 % 03/17/21 04:46 Eos % (Auto) 2.0 % 03/17/21 04:46 Baso % (Auto) 0.4 % 03/17/21 04:46 Neut # (Auto) 3.99 10^3/uL (1.8-7.7) 03/17/21 04:46 Lymph # (Auto) 2.0 10^3/uL (0.8-4.8) 03/17/21 04:46 Reagan # (Auto) 0.8 10^3/uL (0.2-0.9) 03/17/21 04:46 Eos # (Auto) 0.1 10^3/uL (0.0-0.8) 03/17/21 04:46 Baso # (Auto) 0.0 10^3/uL (0.0-0.1) 03/17/21 04:46 Nucleated RBC % (auto) 0 % 03/17/21 04:46 Nucleated RBCs # 0.0 /100WBC 03/17/21 04:46 Sodium 141 mmol/L (136-145) 03/17/21 04:46 Potassium 3.6 mmol/L (3.5-5.1) 03/17/21 04:46 Chloride 106 mmol/L (98-107) 03/17/21 04:46 Carbon Dioxide 22 mmol/L (22-29) 03/17/21 04:46 Anion Gap 16.6 (5-19) 03/17/21 04:46 BUN 14 mg/dL (8-23) 03/17/21 04:46 Creatinine 0.9 mg/dL (0.7-1.2) 03/17/21 04:46 GFR Calculation Not Reportable 03/17/21 04:46 Glucose 84 mg/dL (65-115) 03/17/21 04:46 Calculated Osmolality 292 mOsm/kg (285-295) 03/17/21 04:46 Calcium 9.1 mg/dL (8.5-10.5) 03/17/21 04:46 Magnesium 1.9 mg/dL (1.7-2.3) 03/16/21 10:21 Total Bilirubin 1.8 mg/dL (0.15-1.2) H 03/17/21 04:46 AST 13 U/L (0-40) 03/17/21 04:46 ALT 18 U/L (0-41) 03/17/21 04:46 Alkaline Phosphatase 57 IU/L (40-130) 03/17/21 04:46 Troponin T Baseline 10 ng/L (0-15) 03/16/21 10:21 Troponin T 120 Minute 9.15 ng/L (0-15) 03/16/21 11:36 Delta Troponin T -0.85 ABS# (0-10) L 03/16/21 11:36 NT-Pro-B Natriuret Pep 1383 pg/mL (0-450) H 03/16/21 10:21 Total Protein 7.2 g/dL (6.6-8.7) 03/17/21 04:46 Albumin 3.8 g/dL (3.5-5.2) 03/17/21 04:46 Globulin 3.4 g/dL (1.3-4.6) 03/17/21 04:46 TSH 3.45 uIU/mL (0.27-4.20) 03/16/21 10:21 A&P Assessment and plan (1) Accelerated hypertension: The accelerated hypertension, could be because of the withdrawal of metoprolol and clonidine. I may start the patient on metoprolol 50 mg p.o. twice daily. We may go up on the other antihypertensive medications. The blood pressure needs to be closely monitored. Status: Resolved (2) Bradycardia: Most likely the patient has some sinus chris dysfunction. The heart rate seems to be improving at this point. This needs to be closely monitored. She may require a permanent pacer implantation sometime down the line. Status: Acute (3) Atrial fibrillation: Admit appropriate to start the patient on therapeutic dose of Lovenox at this point. An echocardiogram was done which will be reviewed. Also may schedule the patient for a Lexiscan/sestamibi/sestamibi stress test to evaluate for any underlying coronary ischemia. Status: Acute Qualifiers: Atrial fibrillation type: unspecified Qualified Code(s): I48.91 - Unspecified atrial fibrillation Additional A&P Information After reviewing the above and also based on the patient's clinical progress, further recommendations will be made. Thank you for the opportunity to evaluate this patient and make these recommendation Attestations Medical Necessity Statement*: Disposition as per the primary Coding Level of Care Code Acute Wheel And Caster Repairer for g Fwd Diagnoses Accelerated hypertension I10 Bradycardia R00.1 Atrial fibrillation I48.91 Atrial fibrillation type: unspecified
--- NOTE | 2021-03-17 18:47 | NMCV_ITS ---
NM jermain perf SPECT r/s* [id number] Yung Smith Age: 80 Gender: M : 1940 Exam Date: 03/17/2021 18:47 Ordering Phys: Rodney Phillips MD ([email or web address]) Technologist: ELIANA Aguirre Exam Location: [facility] Indications: CHEST PAIN A FIB STRESS TEST [facility] IMAGE PROTOCOL Rest/Stress 1 Lexiscan Day Radiopharmaceutical Dose (mCi) Administration Site Administered by Rest: Tc-99m 11.0 IV ELIANA Aburto Sestamibi Stress:Tc-99m 32.9 IV ELIANA Aburto Sestamibi Rest: 17-Mar-2021 60 Discovery 630 Stress: 17-Mar-2021 30 Discovery 630 0.4mg Lexiscan. Images obtained in supine and prone position. SPECT RESULTS Technical Quality: Excellent Raw Data Analysis: Normal Image Corrections: No attenuation or motion correction applied Summed Stress Score: 0 Summed Rest Score: 0 Summed Difference Score: 0 PERFUSION FINDINGS Uniform myocardial tracer uptake with no significant perfusion of normalities. FUNCTIONAL RESULTS (calculated via Gated SPECT) Stress Image LV EF (%): 74 Stress EDV (mL):130 TID: 0.89 Stress ESV (mL):34 FUNCTIONAL FINDINGS: The segmental wall motion analysis revealed no gross wall motion normalities. IMPRESSIONS 1. Unremarkable myocardial perfusion 2. Normal LV ejection fraction of 74%. 3. Segmental wall motion analysis revealing no gross wall motion abnormalities. 4. Normal LV volume. No significant coronary ischemia, based on the above findings Dr Rodney Phillips MD [facility] (Electronically Signed) Final Date: 17 March 2021 13:29 S
== END 2021-03-17 15:46 | disposition home or self-care (01) ==
LOC: ER 11:01 → ICU 17:40
PROVIDERS: Admitting Provider Internal Medicine; Emergency Provider Family Medicine; PCP Family Medicine; Visit Provider Internal Medicine
DX: I48.91 Unspecified atrial fibrillation (principal); R00.1 Bradycardia, unspecified; I10 Essential (primary) hypertension; I08.3 Combined rheumatic disorders of mitral, aortic and tricuspid valves; Z82.49 Family history of ischemic heart disease and other diseases of the circulatory system
CPT/HCPCS: 36415; 71045; 78452; 80053; 83735; 83880; 84443; 84484; 85025; 93005; 93017; 93306; 96372; 99285; A9500; G0378; J1650; J2785; J7030

== ENCOUNTER → 2021-11-17 12:53 | Outpatient (BNVA) | payer OTHER, SELFPAY | PROVIDERS: PCP Family Medicine; Visit Provider Internal Medicine Cardiovascular Disease | DX: I48.91 Unspecified atrial fibrillation (principal); I10 Essential (primary) hypertension; R00.1 Bradycardia, unspecified; Z87.891 Personal history of nicotine dependence | CPT/HCPCS: 99213; 99214 ==

== ENCOUNTER → 2022-03-16 11:21 | Outpatient (BNVA) | payer OTHER, SELFPAY | PROVIDERS: PCP Family Medicine; Visit Provider Internal Medicine Cardiovascular Disease | DX: I48.91 Unspecified atrial fibrillation (principal); I10 Essential (primary) hypertension; R00.1 Bradycardia, unspecified; Z87.891 Personal history of nicotine dependence; Z79.01 Long term (current) use of anticoagulants | CPT/HCPCS: 99213; 99214 ==

== ENCOUNTER 2022-03-23 11:42 | Emergency (ER) | payer OTHER, SELFPAY ==
[2022-03-23 11:53] VITALS: BP 207/81; PULSE 43; RESP 16; TEMP 36.6; O2SAT 98; BMI 27.1
--- NOTE | 2022-03-23 11:59 | ECG_ITS ---
[facility] Test Date: 2022-03-23 Pat Name: Yung Smith Department: Room: Gender: Male Manager Validation: : 1940 Requested By: Norberto Paredes Order Number: [id number] Castellanos MD: Magali Barry M.D. Measurements Intervals [place] Rate: 41 P: LA: QRS: 54 QRSD: 103 T: 71 QT: 459 QTc: 380 Interpretive Statements ATRIAL FIBRILLATION WITH SLOW VENTRICULAR RESPONSE ABNORMAL RHYTHM ECG Compared to ECG 03/16/2021 15:11:07 Prolonged QT interval no longer present Electronically Signed On 03-23-2022 12:06:44 CDT by Magali Barry M.D. [email or web address]
--- NOTE | 2022-03-23 12:20 | ED_ITS ---
HPI - Arrhythmia/Palpitations General: Chief Complaint: Arrhythmia/Palpitations Stated Complaint: Irregular Heartrate Time Seen by Provider: 03/23/22 12:08 Source: patient Mode of arrival: ambulatory Limitations: no limitations History of Present Illness: This patient was sent to the emergency department by the [place] clinic. Apparently they were doing his annual health maintenance examination and noted he was bradycardic and was concerned about that condition and sent him to the emergency department. Patient has a longstanding history of hypertension and atrial fibrillation. He takes metoprolol in addition to losartan apixaban and amlodipine. He also takes Jordan and at bedtime. Bladder likely for BPH. He is very vigorous and active. 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 He states he has no chest pain no shortness of breath no lightheadedness no near syncope etc. He just recently had his metoprolol decreased from 50 mg twice a day to 25 mg twice a daily. Associated symptoms: Deny anxiety, nausea, pre-syncope, syncope or vomiting Review of Systems Const: Denies: fever(s) or chills Eyes: Denies: change in vision ENMT: Denies: throat pain or odynophagia Card: Reports: irregular heart rhythm; Denies: chest pain, palpitations, edema, swelling of feet/ankles, lightheadedness, syncope or pre-syncope Resp: Denies: dyspnea, productive cough or non-productive cough GI: Denies: abdominal pain, nausea or vomiting : Denies: flank pain, difficulty urinating or dysuria Musc: Denies: neck pain, back pain, extremity pain or extremity swelling Skin/Breast: Denies: rash Neuro: Denies: headache(s), numbness in extremities or weakness in extremities Psych: Denies: anxiety, depression or mood swings PFS ED PFSH: Medical History Hypertension Surgical History History of cataract surgery History of foot surgery Family History Other CAD (coronary artery disease) Social History Smoking and tobacco status: former smoker Alcohol intake: former Physical Exam Narrative: EXAM NARRATIVE: Patient is quite healthy appearing and appears much younger than stated age. He is oriented and goal-directed in his speech. Const: COMMON NORMALS: no acute distress, average body habitus and patient oriented x3 GENERAL APPEARANCE: cooperative and comfortable HENMT: COMMON NORMALS: normocephalic, atraumatic, Normal nasal mucous membranes and turbinates present and moist oral mucous membranes HEAD & SCALP: normocephalic and atraumatic NOSE: Normal nasal mucous membranes and turbinates present Eye: COMMON NORMALS: Equal, round and reactive pupils present and EOMs intact bilaterally PUPIL: Yes Equal, round and reactive pupils present Neck/C-Spine: COMMON NORMALS: full ROM, no lymphadenopathy, no JVD and Thyroid normal THYROID: Thyroid normal Chest: COMMONS NORMALS: normal inspection of the chest Resp: COMMON NORMALS: normal respiratory effort, No retractions and clear to auscultation bilaterally AUSCULTATION: clear to auscultation bilaterally Cardio: COMMON NORMALS: no JVD, regular rate, No murmurs present (Cardio) and Peripheral pulses 2+ throughout RATE: regular rate and bradycardic PERIPHERAL PULSES: Peripheral pulses 2+ throughout GI: COMMON NORMALS: Soft to palpation and non-tender PALPATION: Yes Soft to palpation : COMMON NORMALS: Yes no CVA tenderness BLADDER/KIDNEY EXAM: Yes no CVA tenderness Back/Pelvis: COMMON NORMALS: no CVA tenderness and thoracic and lumbar spine normal to inspection Extremity: COMMON NORMALS: normal to inspection, full ROM, no calf tenderness and no pedal edema Neuro: COMMON NORMALS: patient oriented x3, moves all extremities, no focal motor deficits and no sensory deficits noted Skin: COMMON NORMALS: no rashes or lesions noted and turgor normal GENERAL SKIN EXAM: no rashes or lesions noted and turgor normal Course Reevaluation(s): Reevaluation #1: Patient's screening laboratories are reassuring. He is totally asymptomatic and without any presyncope, syncope or other associated concerning symptoms. He has still sinus bradycardia in approximately the 50-60 range throughout his emergency department stay. We will continue with the plan of stopping his metoprolol and having him check his blood pressure and pulse on a daily basis and record that number. Of instructed him also to follow-up with cardiology in the next 2 weeks. We is also discussed return precautions. Stable at this time and appreciative of care. Time: 13:07 Consultations: Consultation #1: Dr. Dominguez who is the patient's regular telecommunications switch technician had called and stated that he was contacted by the [place] clinic they were concerned about complete heart block. He does not feel that he is in complete heart block and is consistent with atrial fibrillation and after evaluation in the emergency department if he is stable he may be discharged off his beta-kamila. Time: 12:26 Vital Signs: Vital signs: Vital Signs Temperature 97.8 F 03/23/22 11:53 Pulse Rate 37 L 03/23/22 12:34 Respiratory Rate 20 H 03/23/22 12:34 Blood Pressure 166/76 03/23/22 12:34 Pulse Oximetry 96 03/23/22 12:34 Oxygen Delivery Me thod 03/23/22 11:53 MDM - Arrhythmia/Palpitations Medical Decision Making Patient with a known history of atrial fibrillation was noted to have a slow ventricular response this morning at the [place] clinic and sent here for further evaluation. The meantime EKGs were reviewed and the ischial concern expressed by the [facility] of complete heart block is just his normal [place] atrial fibrillation with a slow ventricular response. He is currently on a cardiotonic medication metoprolol which has been recently decreased but we will go ahead and hold it completely. His telecommunications switch technician Dr. Dominguez is aware and in concert with this plan. The patient is totally asymptomatic and stable for discharge. He wi ll monitor heart rate and blood pressure as directed and follow-up with cardiology. Medical Records I reviewed the patient's medical records. Lab Data I reviewed the patient's lab results. : 03/23/22 12:30 03/23/22 12:30 Laboratory Results WBC 7.9 10^3/uL (4.0-10.0) 03/23/22 12:30 RBC 4.64 10^6/uL (4.1-5.3) 03/23/22 12:30 Hgb 15.0 g/dL (11.7-16.6) 03/23/22 12:30 Hct 42.7 % (42.0-52.0) 03/23/22 12:30 MCV 92.0 fl (80-94) 03/23/22 12:30 MCH 32.3 pg (28.0-34.0) 03/23/22 12:30 MCHC 35.1 g/dL (30.0-36.0) 03/23/22 12:30 RDW 13.5 % (12.1-15.1) 03/23/22 12:30 Plt Count 175 10^3/cmm (130-400) 03/23/22 12:30 MPV 11.9 fL (7.4-10.4) H 03/23/22 12:30 Neut % (Auto) 63.8 % 03/23/22 12:30 Lymph % (Auto) 25.3 % 03/23/22 12:30 [place] % (Auto) 7.8 % 03/23/22 12:30 Eos % (Auto) 2.3 % 03/23/22 12:30 Baso % (Auto) 0.5 % 03/23/22 12:30 Neut # (Auto) 5.03 10^3/uL (1.8-7.7) 03/23/22 12:30 Lymph # (Auto) 2.0 10^3/uL (0.8-4.8) 03/23/22 12:30 [place] # (Auto) 0.6 10^3/uL (0.2-0.9) 03/23/22 12:30 Eos # (Auto) 0.2 10^3/uL (0.0-0.8) 03/23/22 12:30 Baso # (Auto) 0.0 10^3/uL (0.0-0.1) 03/23/22 12:30 Nucleated RBC % (auto) 0 % 03/23/22 12:30 Nucleated RBCs # 0.0 /100WBC 03/23/22 12:30 Sodium 136 mmol/L (136-145) 03/23/22 12:30 Potassium 4.1 mmol/L (3.5-5.1) 03/23/22 12:30 Chloride 101 mmol/L (98-107) 03/23/22 12:30 Carbon Dioxide 24 mmol/L (22-29) 03/23/22 12:30 Anion Gap 15.1 (5-19) 03/23/22 12:30 BUN 19 mg/dL (8-23) 03/23/22 12:30 Creatinine 1.0 mg/dL (0.7-1.2) 03/23/22 12:30 GFR Calculation Not Reportable 03/23/22 12:30 Glucose 101 mg/dL (65-115) 03/23/22 12:30 Calculated Osmolality 284 mOsm/kg (285-295) L 03/23/22 12:30 Calcium 9.4 mg/dL (8.5-10.5) 03/23/22 12:30 Magnesium 2.0 mg/dL (1.7-2.3) 03/23/22 12:30 EKG Data EKG 1: I personally reviewed and interpreted this EKG as follows: Interpretation: Patient's initial resting EKG shows a ventricular rate of 41 beats per minute. He has what appears to be atrial fibrillation with a slow ventricular response. QTc intervals normal. No acute ST-T wave changes noted. Discharge Plan Discharge Patient Disposition: Home Clinical Impression: Bradycardia, Atrial fibrillation Condition: Stable Prescriptions: No Action metoprolol tartrate 50 mg tablet 25 mg PO BID@0900,2100 Qty: 60 3RF losartan 100 mg tablet 150 mg PO DIRECTED Rx Instructions: Take 50mg in AM and 100mg in PM terazosin 2 mg Capsule 2 mg PO BEDTIME@21 Vitamin D3 50 mcg (2,000 unit) Capsule 50 mcg PO QAM [id number] oil 350-400 mg Capsule 1 cap PO QAM amlodipine 10 mg Tablet 10 mg PO DAILY Qty: 30 0RF Eliquis 5 mg Tablet 5 mg PO BID@0900,2100 Qty: 60 0RF Discharge Orders: Discharge ED (Routine); Ordered 03/23/22 Ordered By: Sudhakar Medina Referrals: Jaleesa Lezama MD [Primary Care Provider] - Sudhir Dominguez MD [Physician] - 2 weeks Discharge Diet: Usual diet Discharge Activity: Resume usual activity Patient Instructions: Opioid Safety, Pain Management Activity Restrictions/Additional Instructions: Stop taking your metoprolol but take all your other medications as prescribed. Monitor your blood pressure and pulse on a daily basis and record those numbers. Call the cardiology clinic for follow-up in 2 weeks. If it anytime you develop lightheadedness, shortness of breath, chest pain or other concerns return to this emergency department. Coding Level of Care Code ED [employer] Director for Chg Fwd Exam Comprehensive
[2022-03-23 12:34] VITALS: BP 166/76; PULSE 37; RESP 20; O2SAT 96
[2022-03-23 12:35] LABS: Basophils % 0.5 %; Eosinophils # 0.2 10^3/uL (0.0-0.8); Eosinophils % 2.3 %; Hematocrit 42.7 % (42.0-52.0); Lymphocytes % 25.3 %; Mean Corpuscular HGB Conc 35.1 g/dL (30.0-36.0); Mean Corpuscular Hemoglobin 32.3 pg (28.0-34.0); Mean Platelet Volume 11.9 fL (7.4-10.4); Monocytes # 0.6 10^3/uL (0.2-0.9); Monocytes % 7.8 %; Neutrophils # 5.03 10^3/uL (1.8-7.7); Neutrophils % 63.8 %; Nucleated Red Blood Cells % 0 %; Platelet Count 175 10^3/cmm (130-400); Red Blood Count 4.64 10^6/uL (4.1-5.3); Red Cell Distribution Width 13.5 % (12.1-15.1); White Blood Count 7.9 10^3/uL (4.0-10.0)
[2022-03-23 12:36] VITALS: BP 166/76; PULSE 42; RESP 17; O2SAT 95
[2022-03-23 12:45] VITALS: BP 166/76; PULSE 38; RESP 16; O2SAT 96
[2022-03-23 12:52] LABS: Anion Gap 15.1 (5-19); Blood Urea Nitrogen 19 mg/dL (8-23); Calcium 9.4 mg/dL (8.5-10.5); Carbon Dioxide 24 mmol/L (22-29); Chloride 101 mmol/L (98-107); Glucose 101 mg/dL (65-115); Osmolality Calculated 284 mOsm/kg (285-295); Potassium 4.1 mmol/L (3.5-5.1); Sodium 136 mmol/L (136-145)
[2022-03-23 13:00] VITALS: BP 166/76; PULSE 37; RESP 12; O2SAT 96
[2022-03-23 13:23] VITALS: BP 156/79; PULSE 45; RESP 21; O2SAT 97
--- NOTE | 2022-03-23 14:26 | DCPLANNER ---
Addendum entered by Clarissa Salvador 05/20/22 14:44: Patient had a follow up appointment scheduled with heart care - patient did attend appointment. Addendum entered by Clarissa Salvador 03/25/22 12:03: Patient has a follow up appointment scheduled for , April 07, 2022 at 10:15 with Erna Bernardo at [facility]. Clinic will call patient with appointment information. Original Note: loan and credit manager had message to schedule a follow up appointment for patient with cardiology. loan and credit manager sent patients information to the front office staff of heart care. Patients information will be printed and reviewed. Clinic will call patient with appointment information.
== END 2022-03-23 13:24 | disposition home or self-care (01) ==
PROVIDERS: Emergency Provider Emergency Medicine; PCP Family Medicine
DX: R00.1 Bradycardia, unspecified (principal); I48.91 Unspecified atrial fibrillation; Z79.01 Long term (current) use of anticoagulants; I10 Essential (primary) hypertension; Z87.891 Personal history of nicotine dependence
CPT/HCPCS: 80048; 83735; 85025; 93005; 99284

== ENCOUNTER → 2022-04-07 10:04 | Outpatient (BNVA) | payer OTHER, SELFPAY | PROVIDERS: PCP Family Medicine; Visit Provider Nurse Practitioner Family | DX: I48.91 Unspecified atrial fibrillation (principal); Z87.891 Personal history of nicotine dependence; Z79.01 Long term (current) use of anticoagulants | CPT/HCPCS: 93005; 99213 ==

== ENCOUNTER → 2022-07-05 12:39 | Outpatient (BNVA) | payer OTHER, SELFPAY | PROVIDERS: PCP Family Medicine; Visit Provider Internal Medicine | DX: I48.91 Unspecified atrial fibrillation (principal); I10 Essential (primary) hypertension; R00.1 Bradycardia, unspecified; R94.31 Abnormal electrocardiogram [ECG] [EKG]; Z79.01 Long term (current) use of anticoagulants; Z87.891 Personal history of nicotine dependence | CPT/HCPCS: 99214 ==

== ENCOUNTER → 2023-07-04 12:48 | Outpatient (BNVA) | payer OTHER, SELFPAY | PROVIDERS: PCP Family Medicine; Visit Provider Internal Medicine | DX: I48.91 Unspecified atrial fibrillation (principal); I10 Essential (primary) hypertension; R00.1 Bradycardia, unspecified; Z87.891 Personal history of nicotine dependence; Z79.01 Long term (current) use of anticoagulants | CPT/HCPCS: 99214 ==

== ENCOUNTER → 2024-08-12 12:28 | Outpatient (BNVA) | payer OTHER, SELFPAY | PROVIDERS: PCP Family Medicine; Visit Provider Internal Medicine | DX: I48.91 Unspecified atrial fibrillation (principal); I10 Essential (primary) hypertension; R00.1 Bradycardia, unspecified | CPT/HCPCS: 99213 ==